=== PATIENT | male | born 1990 | race Two or more races ===

== ENCOUNTER → 2016-11-04 | Outpatient (REF) | payer OTHER | LOC: M SFHCLERA 20:39 | PROVIDERS: ATTEND Physician Assistant | DX: J02.9 Acute pharyngitis, unspecified (principal) ==

== ENCOUNTER 2017-03-16 02:16 | Emergency (ER) | payer OTHER ==
[~2017-03-16] VITALS: Ht 182.9 cm; Wt 95.5 kg
[2017-03-16 02:29] VITALS: BP 129/79
[2017-03-16] MEDS ORDERED: KETOROLAC 60 MG/2 ML VIAL (J1885) IM ONE (04:45)
[2017-03-16] MEDS ORDERED: KETO10TAB PO (04:48)
--- NOTE | 2017-03-16 09:44 | REP ---
Left wrist four views: Comparison is 04/13/2013. There has been interval internal fixation of the scaphoid ossicle. The fixation screw and fracture fragments are in satisfactory positions alignment. Mineralization joint spaces are normal. There is no acute fracture or dislocation. There are no calcifications or foreign bodies. There is a small accessory ossicle lateral to the scaphoid. There is a subtle lucency in the distal radius, not present previously, possibly a donor site. Signed by Rudi Domínguez MD 03/16/2017 08:07 A
--- NOTE | 2017-03-17 07:00 | ED PDOC ---
Post-Departure Follow-Up left wrist film certified letter to pt re formal report of report, Vlad Castro MD Mar 17, 2017 07:00
== END 2017-03-16 04:55 | disposition home or self-care (01) ==
LOC: M ED 02:16
DX: S66.912A Strain of unspecified muscle, fascia and tendon at wrist and hand level, left hand, initial encounter (principal); W01.198A Fall on same level from slipping, tripping and stumbling with subsequent striking against other object, initial encounter; Y92.89 Other specified places as the place of occurrence of the external cause; Y93.01 Activity, walking, marching and hiking; Y99.9 Unspecified external cause status
CPT/HCPCS: 73110; 96372; 99282; J1885

== ENCOUNTER 2017-05-24 00:58 | Emergency (ER) | payer OTHER, SELFPAY ==
[~2017-05-24] VITALS: Ht 182.9 cm; Wt 95.0 kg
[~2017-05-24 00:58] MED LIST: KETO10TAB PO
[2017-05-24 01:10] VITALS: BP 138/73
[2017-05-24] MEDS ORDERED: TESS100C PO (01:33)
[2017-05-24] MEDS ORDERED: BENZONATATE 100 MG CAP PO ONE (01:45)
[2017-05-25] MEDS ORDERED: PRED10TA2 PO (20:32)
[2017-05-25] MEDS ORDERED: ZITHTAB PO (20:32)
[2017-05-25] MEDS ORDERED: VENTAER IN (20:32)
== END 2017-05-24 01:56 | disposition home or self-care (01) ==
LOC: M ED 00:58
DX: J20.9 Acute bronchitis, unspecified (principal)

== ENCOUNTER 2017-05-25 17:29 | Emergency (ER) | payer SELFPAY ==
[~2017-05-25] VITALS: Ht 182.9 cm; Wt 95.5 kg
[~2017-05-25 17:29] MED LIST changes: +TESS100C PO
[2017-05-25] MEDS ORDERED: IBUPROFEN 800 MG TAB PO ONE (20:00)
[2017-05-25] MEDS ORDERED: predniSONE 20 MG TAB PO ONE (20:00)
[2017-05-25] MEDS ORDERED: IPRATROPIUM 0.5MG/ALBUTEROL 2.5MG INH SOL UD 3ML (DUONEB)(J7620) NEB ONE (20:00)
[2017-05-25] MEDS ORDERED: VENTAER IN (20:32)
[2017-05-25] MEDS ORDERED: PRED10TA2 PO (20:32)
[2017-05-25] MEDS ORDERED: ZITHTAB PO (20:32)
[2017-05-25 20:38] VITALS: BP 118/52
--- NOTE | 2017-05-26 01:50 | REP ---
Chest clinical: Cough . Comparison: None . Technique: PA and lateral. Findings: The mediastinum and cardiac silhouette are normal. The lung tao are clear and without acute consolidation, effusion, or pneumothorax. The skeletal structures are intact and normal. Impression: 1. No acute cardiopulmonary process. Signed by Kelton Delatorre MD 05/26/2017 01:41 A
== END 2017-05-25 20:39 | disposition home or self-care (01) ==
LOC: M ED 17:29
DX: J45.901 Unspecified asthma with (acute) exacerbation (principal); J20.9 Acute bronchitis, unspecified

== ENCOUNTER 2018-02-03 15:37 | Emergency (ER) | payer SELFPAY ==
[2018-02-03] MEDS ORDERED: LISSAMINE GREEN OPHTH 1.5 MG STRIP OD (17:15)
[2018-02-03] MEDS ORDERED: TETRACAINE 0.5% OPHTH SOLN 4ML OD (17:15)
== END 2018-02-03 18:17 | disposition home or self-care (01) ==
LOC: M ED 15:37
DX: H10.31 Unspecified acute conjunctivitis, right eye (principal); T15.01XA Foreign body in cornea, right eye, initial encounter; X58.XXXA Exposure to other specified factors, initial encounter; Y92.89 Other specified places as the place of occurrence of the external cause
CPT/HCPCS: 99283

== ENCOUNTER → 2019-10-21 | Outpatient (CLI) | payer MEDICAID, OTHER ==
[~2019-10-21] MED LIST changes: +ERYTOIN8 OD; +PRED10TA2 PO; +VENTAER IN; +ZITHTAB PO
--- NOTE | 2019-10-21 13:00 | REP ---
LEFT FOREARM, TWO VIEWS: Two views of the left forearm are performed. No acute fracture or dislocation is seen. Metallic screw is seen in the scaphoid, with an old healed fracture noted of the scaphoid bone. IMPRESSION: No fracture or dislocation. Electronically Signed by Rudi Mejia MD 10/21/2019 06:08 P
== END ==
LOC: M LRY 12:22
PROVIDERS: ATTEND Physician Assistant
DX: M79.632 Pain in left forearm (principal)

== ENCOUNTER → 2020-11-25 | Outpatient (CLI) | payer OTHER | LOC: M OUTALCOH 14:13 | PROVIDERS: ATTEND Psychiatry & Neurology Psychiatry | DX: F10.10 Alcohol abuse, uncomplicated (principal) ==

== ENCOUNTER 2020-12-02 11:00 | Outpatient (RCR) | payer OTHER | END 2020-12-04 | LOC: M OUTALCOH 11:00 | PROVIDERS: ATTEND Psychiatry & Neurology Psychiatry | DX: F10.10 Alcohol abuse, uncomplicated (principal); Z72.0 Tobacco use ==

== ENCOUNTER 2020-12-08 12:05 | Emergency (ER) | payer OTHER ==
[~2020-12-08] VITALS: Ht 180.3 cm; Wt 108.3 kg
[2020-12-08] MEDS ORDERED: MORPHINE 4 MG/ML 1ML VIAL/SYRINGE (J2270) IV ONE (12:55)
[2020-12-08] MEDS ORDERED: ONDANSETRON 4MG/2ML VIAL IV ONE (12:55)
[2020-12-08] MEDS ORDERED: NS 1,000 ML IV ONE (12:55)
[2020-12-08 13:02] LABS: BASO # 0.1 10^3/uL (0.0-0.2); BASO % 1.1 % (0.0-1.0); EOS # 0.1 10^3/uL (0.0-0.5); EOS % 0.8 % (0.0-3.0); HEMATOCRIT 50.8 % (42.0-52.0); HEMOGLOBIN 17.4 g/dl (13.5-17.5); LYMPH # 2.3 10^3/uL (1.5-5.0); LYMPH % 31.6 % (24.0-44.0); MEAN CORPUSCULAR HEMOGLOBIN 30.9 pg (27.0-33.0); MEAN CORPUSCULAR HGB CONC 34.3 g/dl (32.0-36.5); MEAN CORPUSCULAR VOLUME 90.1 fl (80.0-96.0); MONO # 0.6 10^3/uL (0.0-0.8); MONO % 7.9 % (2.0-8.0); NEUTROPHILS # 4.2 10^3/uL (1.5-8.5); NEUTROPHILS % 58.3 % (36.0-66.0); PLATELET COUNT, AUTOMATED 292 10^3/uL (150-450); RED BLOOD COUNT 5.64 10^6/uL (4.30-6.10); WHITE BLOOD COUNT 7.2 10^3/uL (4.0-10.0)
[2020-12-08 13:52] LABS: ALBUMIN 4.4 GM/DL (3.2-5.2); ALT/SGPT 67 U/L (12-78); BILIRUBIN,DIRECT 0.3 MG/DL (0.0-0.2); BILIRUBIN,TOTAL 1.4 MG/DL (0.2-1.0); BLOOD UREA NITROGEN 10 MG/DL (7-18); CALCIUM LEVEL 9.6 MG/DL (8.5-10.1); CARBON DIOXIDE LEVEL 27 MEQ/L (21-32); CHLORIDE LEVEL 105 MEQ/L (98-107); CREATININE FOR GFR 0.89 MG/DL (0.70-1.30); GLOMERULAR FILTRATION RATE > 60.0 (>60); GLUCOSE, FASTING 85 MG/DL (70-100); LIPASE 96 U/L (73-393); POTASSIUM SERUM 4.2 MEQ/L (3.5-5.1); SODIUM LEVEL 139 MEQ/L (136-145); TOTAL PROTEIN 7.7 GM/DL (6.4-8.2)
[2020-12-08] MEDS ORDERED: ISOVUE-370 76% 100ML VIAL As Ordered ONE (14:16)
--- NOTE | 2020-12-08 14:52 | REP ---
INDICATION: rlq pain r/o appy. COMPARISON: None TECHNIQUE: Standard helical technique after the intravenous administration of 100 cc Isovue 370 FINDINGS: Lung bases are clear. The liver, gallbladder, spleen, pancreas, adrenal glands, and left kidney are unremarkable. There are 2 nonobstructing right nephroliths each measuring approximately 7 mm there are a few scattered sigmoid colon and descending colon diverticula. The appendix is well visualized and is within normal limits. There is no abnormal periappendiceal fluid. There is no abnormal fatty infiltration of the mesoappendix. There is no free fluid or free air. There is no mass or adenopathy. The abdominal aorta and para-regions are within normal limits. The osseous structures are within normal limits. IMPRESSION: There are 2 nonobstructing right nephroliths as described above. Examination is otherwise unremarkable. <Electronically signed by Godwin Bundy > 12/08/20 [id number]
[2020-12-08] MEDS ORDERED: COLA100C5 PO (15:29)
[2020-12-08] MEDS ORDERED: MIRA3350 PO (15:29)
[2020-12-08 15:38] VITALS: BP 125/85
== END 2020-12-08 15:49 | disposition home or self-care (01) ==
LOC: M ED 12:05
DX: N20.0 Calculus of kidney (principal); R10.31 Right lower quadrant pain
CPT/HCPCS: 36415; 74177; 80048; 80076; 81001; 83690; 85025; 96361; 96374; 96375; 99284; J2270; J2405; Q9967

== ENCOUNTER 2020-12-30 13:31 | Outpatient (RCR) | payer OTHER ==
[~2020-12-30 13:31] MED LIST changes: +COLA100C5 PO; +MIRA3350 PO
== END 2021-01-04 ==
LOC: M OUTALCOH 13:31
PROVIDERS: ATTEND Psychiatry & Neurology Psychiatry
DX: F10.10 Alcohol abuse, uncomplicated (principal); Z72.0 Tobacco use

== ENCOUNTER → 2021-02-03 | Outpatient (RCR) | payer OTHER | LOC: M OUTALCOH 01-05 15:36 | PROVIDERS: ATTEND Psychiatry & Neurology Psychiatry | DX: F10.10 Alcohol abuse, uncomplicated (principal); Z72.0 Tobacco use ==

== ENCOUNTER 2021-03-01 08:00 | Outpatient (RCR) | payer OTHER | END 2021-03-06 | LOC: M OUTALCOH 08:00 | PROVIDERS: ATTEND Psychiatry & Neurology Psychiatry | DX: F10.10 Alcohol abuse, uncomplicated (principal); Z72.0 Tobacco use ==

== ENCOUNTER 2021-03-15 08:00 | Outpatient (RCR) | payer OTHER | END 2021-04-06 | LOC: M OUTALCOH 08:00 | PROVIDERS: ATTEND Psychiatry & Neurology Psychiatry | DX: F10.10 Alcohol abuse, uncomplicated (principal); Z72.0 Tobacco use ==

== ENCOUNTER → 2025-03-13 | Outpatient (CLI) | payer SELFPAY | LOC: M OUTALCOH 07:36 | PROVIDERS: ATTEND Psychiatry & Neurology Psychiatry | DX: Z03.89 Encounter for observation for other suspected diseases and conditions ruled out (principal); Z72.0 Tobacco use ==

== ENCOUNTER 2025-04-03 16:00 | Outpatient (RCR) | payer MEDICAID, SELFPAY | END 2025-04-06 | LOC: M OUTALCOH 16:00 | PROVIDERS: ATTEND Psychiatry & Neurology Psychiatry | DX: Z03.89 Encounter for observation for other suspected diseases and conditions ruled out (principal); Z72.0 Tobacco use ==